=== PATIENT | male | born 1945 | race Caucasian/White ===

== ENCOUNTER 2018-06-18 07:55 | Day surgery (SDC) | payer OTHER ==
[2018-06-18] MEDS ORDERED: FAMOTIDINE 20 MG TAB PO ONE (07:56)
[2018-06-18] MEDS ORDERED: diphenhydrAMINE 25 MG CAP PO ONE ×2 (07:56→08:24)
[2018-06-18] MEDS ORDERED: ASPIRIN EC 325 MG TAB PO ONE ×2 (07:56→08:25)
[2018-06-18] MEDS ORDERED: DIAZEPAM 5 MG TAB PO ONE (07:56)
[2018-06-18] MEDS ORDERED: NS 1,000 ML IV ONE (07:56)
[2018-06-18] MEDS ORDERED: FAMOTIDINE 20 MG TAB ONE (08:24)
[2018-06-18] MEDS ORDERED: DIAZEPAM 5 MG TAB ONE (08:25)
[2018-06-18 08:40] LABS: PLATELET COUNT 195 10^3/uL (150-400)
[2018-06-18] MEDS ORDERED: fentaNYL 100 MCG/2 ML INJ ONE (08:40)
[2018-06-18] MEDS ORDERED: LIDOCAINE 1% 300 MG/30 ML SDV ONE (08:40)
[2018-06-18] MEDS ORDERED: MIDAZOLAM 2 MG/2 ML VIAL ONE ×2 (08:40→10:48)
[2018-06-18] MEDS ORDERED: IOPAMIDOL (ISOVUE-370) 150 ML BTL IV ONE ×2 (08:40→10:28)
[2018-06-18 08:48] LABS: INR 0.96 (0.83-1.16)
--- NOTE | 2018-06-18 09:11 | PDPROPOC ---
Sedation Plan of Care Sedation Plan of Care: vital signs stable, mental status noted, patient educated of risks, benefits, alternatives, patient can tolerate sedation ASA Classification: ASA 1 Planned drugs: fentanyl, midazolam Mallampati Score: Class 1 Mallampati Reference Image: Patient passed 3-3-2 rule?: Yes
--- NOTE | 2018-06-18 09:11 | PDHPUP ---
History & Physical Update H&P update statement: This history and physical update is based on an assessment of the patient which was completed after admission or registration (within 24 hours), but prior to the surgery/procedure. H&P update: H&P reviewed & patient examined, no change in patient's condition since H&P completed
[2018-06-18] MEDS ORDERED: HEPARIN 10,000 UNIT/10 ML MDV (1,000 UNIT/ML) ONE (09:39)
[2018-06-18] MEDS ORDERED: ONDANSETRON 4 MG/2 ML VIAL IVP PRN (11:12)
[2018-06-18] MEDS ORDERED: ATROPINE SULFATE 1 MG/10 ML SYR IVP PRN (11:12)
--- NOTE | 2018-06-18 14:04 | CPEKG ---
Test Reason : OPEN Blood Pressure : / mmHG Vent. Rate : 079 BPM Atrial Rate : 081 BPM P-R Int : 217 ms QRS Dur : 125 ms QT Int : 410 ms P-R-T Axes : 015 016 -01 degrees QTc Int : 471 ms Sinus rhythm Borderline prolonged AL interval Right bundle branch block Abnormal inferior Q waves Confirmed by Rosales Jade ([id number]) on 06/18/2018 2:04:44 PM Referred By: Confirmed By:Rosales Jade
--- NOTE | 2018-06-18 14:21 | PDDXCAT ---
Diagnostic Cath Note - . 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 Indication: other (Known coronary artery disease with previous bypass surgery dating back to 2001, symptoms of exertional dyspnea, abnormal stress test suggesting LAD territory ischemia.) - Procedure Access: right groin Procedure: left heart catheterization, coronary angiography, left ventriculogram , TERRAZAS injection - Materials Left Heart Cath size: 6F Left Heart Cath materials: other (JR4, JL4, RCB, LCB, AR1, AR2, AL1, AL2, hockey stick guide catheter, CLS 3.5 guide catheter.) - Findings-Left Heart Catheterization LM: Left main is a moderate caliber vessel with appropriate bifurcation into the LAD and circumflex distributions. Luminal irregularities without obstructive lesions are noted. LAD: The LAD is a small caliber diffusely diseased vessel in the proximal segment. It becomes occluded in the midportion. There is competitive flow at or shortly after the origin of a 1st diagonal branch. Competitive flow is noted within the 1st diagonal branch. LCX: The circumflex is a moderate caliber however diffusely diseased vessel. This vessel is occluded in the midportion after the origin of an obtuse marginal branch. Competitive flow is noted in the inferior branch of this obtuse marginal. RCA: The right coronary artery is 100% occluded in the proximal segment. TERRAZAS: The patient has a left internal mammary artery graft to the LAD. There appears to be a free radial "T"graft off this internal mammary artery that subsequently revascularize is the diagonal branch, 1st obtuse marginal, 2nd obtuse marginal and right posterolateral branch. This graft is patent throughout its course. There is retrograde opacification of small caliber and diffusely diseased vessels including the diagonal branch and both obtuse marginal branch. The right coronary artery is retrograde profuse to the point of occlusion in the proximal vessel. LVEF: 70%. Wall motion: Normal wall motion. Complications: None. Estimated blood loss: <50ml Closure method: Perclose Assessment: 1. Severe [place] coronary artery disease as described above with occlusion of all 3 major vascular territories. 2. Complete arterial revascularization with a left internal mammary artery graft to the LAD and subsequently a free radial "T"graft that provides flow to the diagonal, 1st obtuse marginal, 2nd obtuse marginal and right posterolateral branch. 3. Preserved left ventricular systolic function with ejection fraction of 70% and no regional wall motion abnormalities. 4. Recent stress testing indicating mild septal ischemia. Plan: The patient will be treated with maximal medical therapy for secondary prevention. At the present time there are no targets or clear indications for revascularization.
== END 2018-06-18 14:33 | disposition home or self-care (01) ==
LOC: FCATH 07:55
PROVIDERS: ATTEND Internal Medicine Cardiovascular Disease
PROC: B2111ZZ Fluoroscopy of Multiple Coronary Arteries using Low Osmolar Contrast (ICD-10-PCS; principal; 2018-06-18)
PROC: 4A023N7 Measurement of Cardiac Sampling and Pressure, Left Heart, Percutaneous Approach (ICD-10-PCS; principal; 2018-06-18)
PROC: B2151ZZ Fluoroscopy of Left Heart using Low Osmolar Contrast (ICD-10-PCS; principal; 2018-06-18)
DX: I25.10 Atherosclerotic heart disease of native coronary artery without angina pectoris (principal); R06.09 Other forms of dyspnea; R94.39 Abnormal result of other cardiovascular function study
CPT/HCPCS: 93005; 93459; C1887; C1760; J1644; J2250; J3010; Q9967

== ENCOUNTER 2018-08-25 17:48 | Emergency (ER) | payer OTHER ==
[2018-08-25] MEDS ORDERED: MECLIZINE HCL 25 MG TAB PO ONE (18:37)
[2018-08-25] MEDS ORDERED: NS 1,000 ML IV ONE (18:38)
--- NOTE | 2018-08-25 18:42 | EDPHY ---
H & P Stated Complaint: high bp/room spinning dizzy sl sob Time Seen by Provider: 08/25/18 18:22 HPI/ROS: CHIEF COMPLAINT: Vertigo, high blood pressure, mild headache HISTORY OF PRESENT ILLNESS: Patient is a 73-year-old man with a history of 5 vessel CABG 18 years ago but negative heart catheterization in May as well as previous history of PEs no longer anticoagulated. He states that while driving his car to hours ago he developed sudden vertigo. He has had benign positional vertigo before but it is not as intense as that was and that was 30 years ago. He states that this is more mild but chronic. He then became concerned about his blood pressure and had several readings or elevated 160/80 and 180/100. 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 He denies chest pain or shortness of breath. He does have a mild headache. No blurred vision. He has a hard time ambulating and is off balance. No focal weakness deficits or paresthesias. No trauma. No recent fevers or infections. Severity: Mild Modifying factors: Worsened by standing or turning head REVIEW OF SYSTEMS: Constitutional: denies: chills, fever, recent illness, recent injury EENTM: denies: blurred vision, double vision, nose congestion Respiratory: denies: cough, shortness of breath Cardiac: denies: chest pain, irregular heart rate, lightheadedness, palpitations Gastrointestinal/Abdominal: denies: abdominal pain, diarrhea, nausea, vomiting, blood streaked stools Genitourinary: denies: dysuria, frequency, hematuria, pain Musculoskeletal: denies: joint pain, muscle pain Skin: denies: lesions, rash, jaundice, bruising Neurological: See HPI Hematologic/Lymphatic: denies: blood clots, easy bleeding, easy bruising Immunologic/allergic: denies: HIV/AIDS, transplant 10 systems reviewed and negative except as noted EXAM: GENERAL: Well-appearing, well-nourished and in no acute distress. HEAD: Atraumatic, normocephalic. EYES: Pupils equal round and reactive to light, extraocular movements intact, sclera anicteric, conjunctiva are normal. ENT: Mild nystagmus when looking to the left, fatigues. TMs normal, nares patent, oropharynx clear without exudates. Moist mucous membranes. NECK: Normal range of motion, supple without lymphadenopathy or JVD. LUNGS: Breath sounds clear to auscultation bilaterally and equal. No wheezes rales or rhonchi. HEART: Regular rate and rhythm without murmurs, rubs or gallops. ABDOMEN: Soft, nontender, normoactive bowel sounds. No guarding, no rebound. No masses appreciated. BACK: No CVA tenderness, no spinal tenderness, step-offs or deformities EXTREMITIES: Normal range of motion, no pitting or edema. No clubbing or cyanosis. NEUROLOGICAL: NIH score 0. Cranial nerves II through XII grossly intact. Normal speech, somewhat clumsy gait, difficulty with heel-to-toe ambulation. Negative Romberg. 5/5 strength, normal movement in all extremities, normal sensation, normal reflexes PSYCH: Normal mood, normal affect. SKIN: Warm, dry, normal turgor, no visible rashes or lesions. Source: Patient - Personal History Current Tetanus Diphtheria and Acellular Pertussis (TDAP): Yes - Medical/Surgical History Hx Asthma: No Hx Chronic Respiratory Disease: No Hx Diabetes: No Hx Cardiac Disease: Yes Hx Renal Disease: No Hx Cirrhosis: No Hx Alcoholism: No Hx HIV/AIDS: No Hx Splenectomy or Spleen Trauma: No Other PMH: cardiac bypass, PE, benign positional vertigo - Family History Significant Family History: No pertinent family hx - Social History Smoking Status: Former smoker Alcohol Use: None Constitutional: Initial Vital Signs Temperature (C) 36.7 C 08/25/18 17:53 Heart Rate 80 08/25/18 17:53 Respiratory Rate 18 08/25/18 17:53 Blood Pressure 195/95 H 08/25/18 17:53 O2 Sat (%) 95 08/25/18 17:53 O2 Delivery Mode Room Air Allergies/Adverse Reactions: Sulfa (Sulfonamide Antibiotics) Allergy (Verified 08/25/18 17:52) Rash typhoid vaccine Allergy (Verified 08/25/18 17:52) Home Medications: Medication Instructions Recorded Ascorbic Acid [Vitamin C 500 mg 1,000 mg PO DAILY 06/11/18 (*)] Aspirin [Aspirin 325 mg (*)] 325 mg PO HS 06/11/18 Cholecalciferol Vit D3 [Vitamin D3 2,000 units PO DAILY 06/11/18 (*)] Herbals/Supplements -Info Only 1 ea PO DAILY 06/11/18 Ipratropium 0.06% Nasal [Atrovent 2 sprays EACHNARE TID PRN 06/11/18 0.06% Nasal (RX)] Meloxicam 7.5 mg PO BID 06/11/18 Multivitamins [Multivitamin (*)] 1 each PO DAILY 06/11/18 [place]-3 Fatty Acids [Fish Oil 1000 1,000 mg PO DAILY 06/11/18 mg (*)] Pantoprazole Sodium [Protonix 40mg 40 mg PO DAILY 06/11/18 (*)] Rosuvastatin Calcium [Crestor 40mg 40 mg PO HS 06/11/18 (*)] Sertraline HCl [Zoloft 50mg (*)] 75 mg PO DAILY 06/11/18 Meclizine HCl [Meclizine HCl 25 mg 25 mg PO BID #20 tab 08/25/18 (RX,OTC)] Medical Decision Making - Diagnostics Imaging: Discussed imaging studies w/ supervisor airplane flight attendant Radiologist ED Course/Re-evaluation: 7:20 p.m. Patient's blood pressure is now 140/90. He still remains dizzy. He is on his way to CT scan now. NIH score remains 0. 9:00 p.m. Patient's blood pressure remains controlled in the 140 systolic. His symptoms improved but did return when he got up to go to the bathroom. CT and CT angio negative. He is currently at MRI. 10:00 p.m. Patient is feeling much better. His MRI is negative. He and his family are very much relieved. They are eager to go home. Will prescribe meclizine and follow up with his primary. Also give ENT follow-up if his symptoms are not improving. Blood pressure remains controlled. Differential Diagnosis: Partial list of the Differential diagnosis considered include but were not limited to; CVA, benign positional vertigo, hypertensive urgency and although unlikely based on the history and physical exam, I also considered hemorrhage, aneurysm, tumor, infection. - Data Points Laboratory Results: Laboratory Results 08/25/18 19:06 08/25/18 19:06 Medications Given: Discontinued Medications Sodium Chloride (Ns) 1,000 mls @ 0 mls/hr IV EDNOW ONE; Wide Open PRN Reason: Protocol Stop: 08/25/18 18:39 Last Admin: 08/25/18 19:09 Dose: 1,000 mls Meclizine HCl (Meclizine Hcl) 50 mg PO EDNOW ONE Stop: 08/25/18 18:38 Last Admin: 08/25/18 19:09 Dose: 50 mg Point of Care Test Results: Chemistry 08/25/18 08/25/18 19:24 19:12 POC Sodium 141 mEq/L mEq/L (135-145) POC Potassium 3.9 mEq/L mEq/L (3.3-5.0) POC Chloride 102 mEq/L mEq/L (97-110) POC Total CO2 25 mEq/L mEq/L (22-31) POC BUN 23 mg/dL mg/dL (7-23) POC Creatinine 0.7 mg/dL mg/dL (0.7-1.3) POC Glucose 118 mg/dL H mg/dL (70-100) POC Troponin I 0.02 ng/mL ng/mL (0.00-0.08) ISTAT H&H 08/25/18 19:12 POC Hgb 16.0 gm/dL gm/dL (13.7-17.5) POC Hct 47 % % (40-51) Departure - Departure Disposition: Home, Routine, Self-Care Clinical Impression: Vertigo Condition: Fair Instructions: Meclizine (By mouth), Vertigo (ED) Referrals: Jeri Fernandes MD [Primary Care Provider] - As per Instructions Samson Juarez, PAC [Physician Skin Installer] - 2-3 days, if not improved Prescriptions: Meclizine HCl [Meclizine HCl 25 mg (RX,OTC)] 25 mg PO BID #20 tab
[2018-08-25 19:29] LABS: PLATELET COUNT 177 10^3/uL (150-400)
[2018-08-25] MEDS ORDERED: IOPAMIDOL (ISOVUE 370) 100 ML BTL IV ONE (19:33)
[2018-08-25 19:40] LABS: INR 0.99 (0.83-1.16); PROTIME(PATIENT) 13.3 SEC (12.0-15.0)
[2018-08-25 21:11] VITALS: BP 154/81
== END 2018-08-25 22:17 | disposition home or self-care (01) ==
DX: R42 Dizziness and giddiness (principal); I10 Essential (primary) hypertension; E86.9 Volume depletion, unspecified; Z95.1 Presence of aortocoronary bypass graft; Z86.711 Personal history of pulmonary embolism; Z87.891 Personal history of nicotine dependence
CPT/HCPCS: 70450; 70496; 70498; 70551; 96360; 99285; Q9967; 82435-PO; 82565-PO; 82947-PO; 84132-PO; 84295-PO; 84484-ER; 84520-PO; 85014-ER